=== PATIENT | female | born 1990 | race African-American/Black ===

== ENCOUNTER 2024-09-09 09:51 | Emergency (ER) | payer OTHER ==
[~2024-09-09] VITALS: Ht 160 cm; Wt 59.0 kg
[2024-09-09 10:11] VITALS: BP 112/92; TEMP 98.4; O2SAT 98
[2024-09-09] MEDS ORDERED: BACI3.5O23 EXT (10:29)
== END 2024-09-09 10:41 | disposition home or self-care (01) ==
LOC: ER 09:57
DX: R21 Rash and other nonspecific skin eruption (principal); Z59.00 Homelessness unspecified